=== PATIENT | male | born 1955 | race Caucasian/White ===

== ENCOUNTER 2019-03-28 15:16 | Observation (INO) ==
[2019-03-28] MEDS ORDERED: ASPIRIN PO ONE (15:23)
--- NOTE | 2019-03-28 15:43 | EKG Report ---
Test Performed on : 03/28/2019 3:30:32 PM Test Reason : chest pain Blood Pressure : / mmHG Vent. Rate : 071 BPM Atrial Rate : 071 BPM P-R Int : 166 ms QRS Dur : 086 ms QT Int : 410 ms P-R-T Axes : 030 010 -24 degrees QTc Int : 445 ms Normal sinus rhythm. Cannot rule out Inferior infarct , age undetermined Abnormal ECG No previous ECGs available Unconfirmed Result
[2019-03-28 16:01] LABS: BASO# 0.05 X1000 (0.0-0.2); BASO% 0.8 % (0.0-0.8); EOS# 0.16 X1000 (0.0-0.7); EOS% 2.6 % (0.0-10.0); HEMATOCRIT 36.2 % (42.0-52.0); HEMOGLOBIN 11.7 g/dL (14.0-18.0); IMM GRAN# 0.02 X1000 (0.0-0.04); IMM GRAN% 0.3 % (0.0-0.5); LYMPH# 2.32 X1000 (1.2-3.4); LYMPH% 37.2 % (20.5-51.1); MCH 31.5 PG (27-31); MCHC 32.3 g/dL (33-37); MCV 97.6 FL (81-99); MONO# 0.43 X1000 (0.11-0.59); MONO% 6.9 % (1.7-9.3); MPV 10.5 FL (7.4-10.4); NEUT# 3.26 X1000 (1.4-6.5); NEUT% 52.2 % (42.2-75.2); PLT 187 X1000 (130-400); RBC 3.71 XMIL (4.7-6.1); RDW 15.1 % (11.5-14.5); WBC 6.24 X1000 (4.8-10.8)
[2019-03-28 16:07] LABS: INR 0.92; PROTIME 12.8 Seconds (11.0-16.0)
[2019-03-28 16:08] LABS: PTT 37.7 Seconds (22.3-41.8)
[2019-03-28 16:15] LABS: ALBUMIN 4.5 g/dL (3.5-5.0); CALCIUM 8.8 mg/dL (8.8-10.2); CREATININE 1.7 mg/dL (0.7-1.2); POTASSIUM 3.6 mmol/L (3.5-5.1); TOTAL BILIRUBIN 0.4 mg/dL (0.20-1.00); TOTAL PROTEIN 7.5 g/dL (6.3-8.3)
[2019-03-28 16:30] LABS: CK INDEX 0.9 (0.0-2.5); CK-MB 14.64 ng/mL (0.0-5.0)
[2019-03-28] MEDS ORDERED: HEPARIN IV ONE (17:41)
[2019-03-28] MEDS ORDERED: HEPARIN IV PRN (17:41)
[2019-03-28] MEDS ORDERED: HEPARIN 25,000 UNITS/D5W 25,000 UNIT/250 ML IV.SOLN IV SCH (17:45)
[2019-03-28] MEDS ORDERED: NITROGLYCERIN SL ONE (17:50)
[2019-03-28] MEDS ORDERED: TYLENOL PO ONE (17:50)
--- NOTE | 2019-03-28 17:59 | Diag Imaging Result Doc PS360 ---
EXAM: CHEST-2 VIEWS INDICATION: chest pain TECHNIQUE: 2 views COMPARISON: None. FINDINGS: The lungs are grossly clear. There is no discrete pleural fluid collection or pneumothorax. The cardiomediastinal silhouette and central vasculature are grossly unremarkable. IMPRESSION: No evidence of acute pathology by plain radiograph. Electronically signed by Jorge L Vásquez 03/28/2019 5:57 PM
--- NOTE | 2019-03-28 18:01 | PROVIDER DOCUMENTATION ---
This chart was entered by Teodoro Torres Scribe, acting as scribe for Patrice Pandey MD. HPI-Chest Pain - General Chief Complaint: Chest Pain Stated Complaint: CHEST PAIN Time Seen by Provider: 03/28/19 15:33 Source: patient Allergies/Adverse Reactions: Patient Allergies Allergy/AdvReac Type Severity Reaction Status Date / Time No Known Allergies Allergy Verified 02/14/17 16:56 Home Medications: Home Medication List Medication Instructions Recorded Confirmed Last Taken Type ATORVAstatin [Lipitor] 80 mg 02/14/17 Unknown History Esomeprazole [Nexium] 40 mg 02/14/17 Unknown History Ibuprofen [Motrin] 800 mg PO Q8H PRN PRN #20 tablet 02/14/17 Unknown Rx Losartan Potassium 50 mg 02/14/17 Unknown History Methylprednisolone [Medrol Dosepak] 4 mg PO DIRECTED #1 package 02/14/17 Unknown Rx Omeprazole 20 mg PO DAILY #20 tablet. 02/14/17 Unknown Rx - History of Present Illness-CP Nature of Presenting Problem: 63 yom presents to the ed with c/o chest pains (30 mins ago) pt states he was washing dishes when pains started. pt states "he might of left nauseas" pt states "the pain comes and goes" Location: reports: epigastric Chest Pain Radiation: reports: no radiation Quality of Pain: reports: aching Severity in ED: mild Onset/Duration: other (30 mins prior to coming to ed) Timing: still present Context/Activities at Onset: reports: light activity Modifying Factors: improves with: nothing Associated Symptoms: reports: headache. denies: fever/chills, shortness of anahi ath Nitro Today/Relief: no nitro taken today Aspirin Treatment Today: no aspirin today Prior Chest Pain/Cardiac Workup: reports: no prior chest pain Similar Symptoms Previously?: No Recently Seen Here or By Another Healthcare Provider: No Review of Systems - Adult - REVIEW OF SYSTEMS - ADULT Constitutional: reports: no symptoms reported Eyes: reports: blurred vision. denies: eye pain, redness Ears, Nose, Mouth & Throat: reports: no symptoms reported Cardiovascular: reports: see HPI, chest pain. denies: palpitations, syncope Respiratory: denies: shortness of breath, wheezing Gastrointestinal: reports: see HPI, nausea (pt states possibly feeling nausea). denies: diarrhea, vomiting Genitourinary: reports: no symptoms reported Musculoskeletal: reports: no symptoms reported Integumentary: reports: no symptoms reported Neurological: reports: see HPI, headache/migraines. denies: slurred speech, syncope Psychiatric: reports: no symptoms reported Endocrine: reports: no symptoms reported Hematologic/Lymphatic: reports: no symptoms reported Allergic/Immunologic: reports: no symptoms reported All Other Systems: Reviewed and Negative Past History - Adult - PAST MEDICAL HISTORY-ADULT Review of Records: reports: Old Records Reviewed, Nursing Assessment Review, Medications Reviewed, Social history reviewed & non-contributory. Major Childhood Illnesses: reports: denies history Cardiovascular: reports: HTN, hyperlipidemia Respiratory: reports: denies history Gastrointestinal: reports: denies history Obstetrical/Gynecological: reports: denies history Genitourinary: reports: denies history Musculoskeletal: reports: denies history Neurological: reports: denies history Endocrine/Immune: reports: denies history Other Conditions: reports: denies history - IMMUNIZATION STATUS Childhood Immunizations: See Nurse Assessment Flu Vaccine: See Nurse Assessment - FAMILY HISTORY Family History: reviewed, not pertinent - SOCIAL HISTORY Smoking: denies Living Situation: family Physical Exam-General - PHYSICAL EXAM-ADULT Initial Vital Signs Reviewed: Yes - CONSTITUTIONAL General Appearance: appears well, alert, no apparent distress - EYES Eyes: PERRL/EOMI - HEAD, EARS, NOSE, MOUTH & THROAT HENMT: moist mucous membranes - NECK Neck: non-tender, full range of motion - RESPIRATORY Respiratory: lungs clear, normal breath sounds. negative: crackles, rales, wheezing - CARDIOVASCULAR Cardiovascular: normal peripheral pulses, regular rate, rhythm - GASTROINTESTINAL (ABDOMEN) Abdominal Exam: normal bowel sounds, non tender, soft - LYMPHATIC Lymphatic: no adenopathy - MUSCULOSKELETAL Back Exam: no CVA tenderness Extremity: normal range of motion, non-tender, normal gait - SKIN Integumentary: normal color, normal turgor, warm/dry - NEUROLOGIC Neurologic: grossly normal - PSYCHIATRIC Psych/Mental Status: normal mood/affect, normal thought content, normal thought process, oriented x 3 - HEART Score HEART Score: History: Moderately Suspicious HEART Score: ECG: Non-Specific Repolarization Disturbance/LBBB/PM HEART Score: Age: 45-65 Years HEART Score: Risk Factors for Atherosclerotic Disease: 1 or 2 Risk Factors HEART Score: Troponin: < or = Normal Limit Total HEART Score:: 4 Progress - PLAN OF CARE/RESULTS Progress/Plan/Lab Results: Vital Signs - 8 hr 03/28/19 15:18 03/28/19 16:18 03/28/19 17:01 Temperature 98 F Pulse Rate 81 69 63 Respiratory Rate 18 18 13 Blood Pressure 149/101 143/100 140/99 O2 Sat by Pulse Oximetry 97 95 99 Laboratory Results - last 24 hr 03/28/19 03/28/19 03/28/19 15:40 15:40 15:40 WBC 6.24 RBC 3.71 L Hgb 11.7 L Hct 36.2 L MCV 97.6 MCH 31.5 H MCHC 32.3 L RDW Std Deviation 15.1 H Plt Count 187 MPV 10.5 H Immature Gran % (Auto) 0.3 Neut % (Auto) 52.2 Lymph % (Auto) 37.2 Donley % (Auto) 6.9 Eos % (Auto) 2.6 Baso % (Auto) 0.8 Immature Gran # (Auto) 0.02 Neut # (Auto) 3.26 Lymph # (Auto) 2.32 Donley # (Auto) 0.43 Eos # (Auto) 0.16 Baso # (Auto) 0.05 PT INR PTT (Actin FS) D-Dimer, Quantitative 1.00 H Sodium 139 Potassium 3.6 Chloride 100 Carbon Dioxide 26 Anion Gap 13 BUN 17 Creatinine 1.7 H Estimated GFR/1.73 m2 41 BUN/Creatinine Ratio 10 Glucose 102 Calculated Osmolality 279 Calcium 8.8 Total Bilirubin 0.40 AST 51 H ALT 25 Alkaline Phosphatase 71 Creatine Kinase 1545 H Creatine Kinase Index 0.9 CK-MB (CK-2) 14.64 H Troponin T Whj-[id number]-Ojookjvprur Pept Total Protein 7.5 Albumin 4.5 Globulin 3.0 Albumin/Globulin Ratio 2.0 03/28/19 03/28/19 03/28/19 15:40 15:40 15:40 WBC RBC Hgb Hct MCV MCH MCHC RDW Std Deviation Plt Count MPV Immature Gran % (Auto) Neut % (Auto) Lymph % (Auto) Donley % (Auto) Eos % (Auto) Baso % (Auto) Immature Gran # (Auto) Neut # (Auto) Lymph # (Auto) Donley # (Auto) Eos # (Auto) Baso # (Auto) PT 12.8 INR 0.92 PTT (Actin FS) 37.7 D-Dimer, Quantitative Sodium Potassium Chloride Carbon Dioxide Anion Gap BUN Creatinine Estimated GFR/1.73 m2 BUN/Creatinine Ratio Glucose Calculated Osmolality Calcium Total Bilirubin AST ALT Alkaline Phosphatase Creatine Kinase Creatine Kinase Index CK-MB (CK-2) Troponin T < 0.010 Xet-G-Zvpinlnjorw Pept 131 Total Protein Albumin Globulin Albumin/Globulin Ratio Orders Category Date Time Status Cardiac Monitoring DIRECTED Care 03/28/19 15:23 Active Oxygen Therapy- ED Nursing DIRECTED Care 03/28/19 15:23 Active Saline Loc NOW Care 03/28/19 15:23 Active CHEST-2 VIEWS [RAD] Stat Exams 03/28/19 15:23 Taken CBC WITH DIFF [HEME] DAILY Lab 03/29/19 06:00 Ordered CBC WITH DIFF [HEME] DAILY Lab 03/30/19 06:00 Ordered CBC WITH DIFF [HEME] DAILY Lab 03/31/19 06:00 Ordered CBC WITH ELECTRONIC DIFF [HEME] Stat Lab 03/28/19 15:40 Completed CK PROFILE [SP CHEM] Stat Lab 03/28/19 15:40 Completed COMPREHENSIVE METABOLIC PANEL [CHEM] Stat Lab 03/28/19 15:40 Completed D-DIMER [COAG] Stat Lab 03/28/19 15:40 Completed PRO B-NATRIURETIC PEPTIDE Stat Lab 03/28/19 15:40 Completed PROTIME WITH INR [COAG] Stat Lab 03/28/19 15:40 Completed PROTIME WITH INR [COAG] Stat Lab 03/28/19 17:41 Uncollected PTT HEPARIN PROTOCOL [COAG] Q6HR Lab 03/28/19 20:00 Ordered PTT HEPARIN PROTOCOL [COAG] Q6HR Lab 03/29/19 02:00 Ordered PTT HEPARIN PROTOCOL [COAG] Q6HR Lab 03/29/19 08:00 Ordered PTT HEPARIN PROTOCOL [COAG] Q6HR Lab 03/29/19 14:00 Ordered PTT [COAG] Stat Lab 03/28/19 15:40 Completed PTT [COAG] Stat Lab 03/28/19 17:41 Uncollected TROPONIN T Stat Lab 03/28/19 15:40 Completed Acetaminophen [Tylenol] Med 03/28/19 17:50 Once 650 mg PO NOW ONE Aspirin Med 03/28/19 15:23 Discontinued 325 mg PO NOW ONE Heparin Med 03/28/19 17:41 Discontinued See Dose Instructions IV NOW ONE Heparin Med 03/28/19 17:41 Ordered See Dose Instructions IV PRN PRN Heparin 25,000 Units/D5w Med 03/28/19 17:45 Ordered 25,000 unit in 250 ml IV 12 unit/kg/hr Nitroglycerin Sl [Nitroglycerin] Med 03/28/19 17:50 Once 0.4 mg SL NOW ONE CP/SOB/Palp >45 yrs of Age Stat Oth 03/28/19 15:23 Ordered EKG [EKG] Stat Ther 03/28/19 15:23 Draft Result Diagrams: 03/28/19 15:40 03/28/19 15:40 - REASSESSMENT Reassessment #1 Time Reassessed: 17:51 Status: improving (jsut talked to pt: CP resolved and now mild CP has returned. systolic 151/. d-dimer is up but Cr 1.7; possible PTE will start hep gtt. paged dr Morrow at 17:40.) - EKG 1 Time of EKG reading by physician:: 15:30 EKG Read and Signed by:: Patrice Pandey EKG Interpretation (*Must complete 3 of following elements*): Abnormal Rate: 71 Rhythm: NSR [place]: normal QRS: normal HI Interval: normal ST Wave: normal Comments: cannot rule out inferior infract, age undetermined - CONSULTS/PCP/HOSPITALIST Notification #1 *Consult/PCP/Hospitalist*: DR Rangel MORROW Time Discussed: 17:58 Consult Disposition: Admit Departure - Departure Date of Disposition Decision: 03/28/19 Time of Disposition Decision: 17:58 DIAGNOSIS: Chest pain, Elevated d-dimer, Elevation of cardiac enzymes, Elevated serum creatinine, Hypertension Disposition: ADMITTED INPATIENT 09 Certified Medical Emergency: Emergent Condition: Stable Referrals and Follow-Ups: Min Ku DO [Primary Care Provider] - - Critical Care Note This patient required my direct & personal management of CC.: No Attestation - Physician/ LUIS F Attestation Patient care was provided by Advanced Practice Provider:: No The physician spent face to face time with patient:: Yes Advanced Practice Provider documentation review:: Supervising physician onsite and consulted in the evaluation and care of this patient. The physician did have a face to face encounter with the patient. This chart was documented by the deedee scribe, (Teodoro Torres Scribe) and accurately reflects the services I performed and decisions made by me, Patrice Pandey MD, as attested by the provider's signature.
[2019-03-28 19:07] LABS: CK INDEX 0.9 (0.0-2.5); CK-MB 13.51 ng/mL (0.0-5.0)
[2019-03-28] MEDS ORDERED: NS 1,000 ML IV ONE (19:31)
[2019-03-28] MEDS ORDERED: TYLENOL PO PRN (19:31)
[2019-03-28] MEDS ORDERED: ZOFRAN IV PRN (19:31)
[2019-03-28] MEDS ORDERED: MORPHINE IV PRN (19:31)
[2019-03-28 20:52] LABS: INR 1.01; PROTIME 13.8 Seconds (11.0-16.0)
[2019-03-29] MEDS ORDERED: ASPIRIN PO ONE (00:14)
[2019-03-29] MEDS ORDERED: ASPIRIN ONE (00:39)
[2019-03-29 03:19] LABS: BASO# 0.04 X1000 (0.0-0.2); BASO% 0.7 % (0.0-0.8); EOS# 0.18 X1000 (0.0-0.7); EOS% 3.1 % (0.0-10.0); HEMATOCRIT 34.3 % (42.0-52.0); IMM GRAN# 0.03 X1000 (0.0-0.04); IMM GRAN% 0.5 % (0.0-0.5); LYMPH# 2.15 X1000 (1.2-3.4); LYMPH% 36.9 % (20.5-51.1); MCH 31.5 PG (27-31); MCHC 32.1 g/dL (33-37); MCV 98.3 FL (81-99); MONO# 0.44 X1000 (0.11-0.59); MONO% 7.6 % (1.7-9.3); MPV 10.3 FL (7.4-10.4); NEUT# 2.98 X1000 (1.4-6.5); NEUT% 51.2 % (42.2-75.2); PLT 167 X1000 (130-400); RBC 3.49 XMIL (4.7-6.1); RDW 15.4 % (11.5-14.5); WBC 5.82 X1000 (4.8-10.8)
--- NOTE | 2019-03-29 06:06 | EKG Report ---
Test Performed on : 03/29/2019 05:44:21 AM Test Reason : chest pain, elevated Troponin Blood Pressure : / mmHG Vent. Rate : 047 BPM Atrial Rate : 054 BPM P-R Int : 178 ms QRS Dur : 088 ms QT Int : 538 ms P-R-T Axes : 043 014 -46 degrees QTc Int : 476 ms Sinus bradycardia. Low voltage QRS Cannot rule out Inferior infarct (cited on or before 28-MAR-2019) Cannot rule out Anterior infarct , age undetermined Abnormal ECG When compared with ECG of 28-MAR-2019 15:30, (Unconfirmed) Vent. rate has decreased BY 24 BPM T wave inversion now evident in Anterior leads Confirmed by Kwan Ramachandran MD ([id number]) on 03/31/2019 3:13:43 PM
[2019-03-29] MEDS ORDERED: NEXIUM PO SCH (07:00)
[2019-03-29 08:55] LABS: CREATININE 1.5 mg/dL (0.7-1.2); TOTAL BILIRUBIN 0.3 mg/dL (0.20-1.00); TOTAL PROTEIN 6.5 g/dL (6.3-8.3)
[2019-03-29] MEDS ORDERED: ASPIRIN PO SCH (09:00)
[2019-03-29 09:47] VITALS: BP 139/96
[2019-03-29 10:04] LABS: CK INDEX 2.4 (0.0-2.5); CK-MB 34.31 ng/mL (0.0-5.0)
--- NOTE | 2019-03-29 11:17 | HISTORY AND PHYSICAL ---
History and physical/discharge summary PRIMARY CARE PROVIDER: DR. Min Ku. CHIEF COMPLAINT: Yesterday that started around 2:30 or 3 o'clock. HISTORY OF PRESENT ILLNESS: Mr. Churchill is a 63-year-old male who carries a past medical history of hypertension, hyperlipidemia, GERD, per his report chronic kidney disease stage 3, current creatinine is 1.7, who reported he started having chest pain yesterday around 2:30 or 3 p.m. This occurred after eating. The pain lasted for maximal an hour and a half. It felt like tightness that was substernal, nonradiating. He had some questionable nausea, positive headache, but denied any diaphoresis, dizziness, palpitations, or shortness of breath. He stated that his pain was relieved after he received some supplemental O2 and aspirin. He is currently chest pain-free. His initial cardiac enzymes were negative at 1540. At 1821, they increased to 0.088 and then around 2300 he turned positive at 0.284 and at 0300, he had another increase at 0.393. His initial EKG just showed normal sinus rhythm. Follow-up EKG showed a sinus bradycardia with T-wave inversion in the anterior and inferior leads. We have talked to our stage manager, Dr. Gonzalez, who is unable to get over to [facility] at this time. We called the [facility] and was placed in contact with their cardiology group. The patient has been accepted and will be transferred to [facility] for further evaluation and intervention. PAST MEDICAL HISTORY: 1. Hypertension. 2. Hyperlipidemia. 3. Gastroesophageal reflux disease. 4. Chronic kidney disease per patient report, stage III. PAST SURGICAL HISTORY: 1. Right knee repair from a torn ACL. 2. Deviated septum repair. FAMILY HISTORY: Mother and sister with diabetes type 2. Denied any coronary artery disease. SOCIAL HISTORY: He is . He works at the [employer] on [employer]. He has a daughter and a son. No tobacco or alcohol. No illicit drug use. ALLERGIES: No known drug allergies. HOME MEDICATIONS: 1. Losartan 50 mg p.o. daily. 2. Nexium 40 mg p.o. daily. 3. He states he was on Lipitor but given elevated enzymes, he was taken off and has been placed on another pill that he did not remember the name for. PHYSICAL EXAMINATION: VITAL SIGNS: Current vital signs, temperature is 97.4 degrees, heart rate 46, respirations 18, blood pressure 122/89, O2 is 99% on 2 L nasal cannula. GENERAL: Mr. Churchill is a 63-year-old male who is lying in the bed, asleep. He was awakened easily. In no acute distress. HEENT: Atraumatic, normocephalic. PERRL. NECK: Supple. Trachea midline. CARDIOVASCULAR: S1, S2 appreciated. No murmurs, gallops or rubs noted. RESPIRATORY: Lung sounds clear bilaterally. GASTROINTESTINAL: Soft, nontender, nondistended. Positive bowel sounds x4 quadrants. EXTREMITIES: Lower extremities are negative for edema. Bilateral pedal pulses are palpable. NEUROLOGIC: No focal deficits noted. DIAGNOSTIC DATA: Chest x-ray, no evidence of acute pathology. Initial EKG was normal sinus rhythm at 71 beats per minute. Followup EKG around 5:44 a.m. showed a sinus bradycardia at 47 beats per minute with T-wave inversion noted in the anterior leads. LABORATORY DATA: White count 5, hemoglobin and hematocrit 11 and 34, platelet count is 167,000. Sodium 139, potassium 3.6, BUN 17, creatinine 1.7, blood glucose is 102. AST 51. CK 1545, then 1442. Initial troponin was negative, Followup 0.088, 3rd troponin was 0.284. Troponin at 3 a.m. was 0.393. ASSESSMENT AND PLAN: 1. Chest pain now in a patient with positive troponins after his initial admission overnight. The patient was given full dose aspirin as well as a 60 unit bolus of heparin upon admission and placed on supplemental O2. We have spoken with Dr. Gonzalez, our stage manager on the [facility]. He was unable to make it in to see the patient at this time. We talked to [facility] and their stage manager. They have accepted the patient and he will be transferred to [facility] under the care of Dr. Kumar with Cardiology for further evaluation and treatment. 2. Hypertension. 3. Hyperlipidemia. 4. Gastroesophageal reflux disease. 5. Chronic kidney disease stage III. Creatinine in is 1.7. We do not have any previous to compare. DISPOSITION: The patient is being transferred to [facility] for further evaluation and care given 2 sets of troponins turning positive and a change in his EKG. He is currently chest pain-free. Dictated by ANDRA Canas for Kenji Paula MD cc: MD Min Erickson DO
--- NOTE | 2019-03-29 23:49 | HISTORY AND PHYSICAL ---
CHIEF COMPLAINT: Chest pain. ADDENDUM: The patient was seen and examined by myself. Full note was dictated and discussed with the nurse practitioner. We are going to admit the patient to the hospital and rule out OR. Further orders as needed. cc: Kenji Paula MD
--- NOTE | 2019-03-30 01:54 | DISCHARGE SUMMARY ---
ADMISSION DATE: 03/28/2019 DISCHARGE DATE: 03/29/2019 DISCHARGE DIAGNOSES: 1. Chest pain with elevated troponin. 2. Hypertension. 3. Hyperlipidemia. 4. Reflux. 5. Others. CONSULTATIONS: None. PROCEDURES: None. BRIEF HOSPITAL COURSE: The patient is a 63-year-old male who presented to the hospital, pain was coming and going. He was having some shortness of breath with mainly chest pain as well. He stated it came on when he was washing dishes. His troponin has continued to climb from 0.2 to 0.39. We will consult Cardiology and we will attempt to transition him to [facility]. DISPOSITION: The patient will be transferred to [facility] for further evaluation of his coronary disease. Full disposition per them. cc: Kenji Paula MD
== END 2019-03-29 11:05 | disposition short-term general hospital (02) ==
LOC: P.ED 15:16 → P.MEDSURG 15:16 → SUATTDRO 15:17
PROVIDERS: ADMIT Family Medicine; ATTEND Family Medicine